=== PATIENT | female | born 1955 | race Hispanic/Latino ===

== ENCOUNTER 2018-03-30 16:33 | Emergency (ER) | payer OTHER ==
[~2018-03-30] VITALS: Ht 157.5 cm; Wt 81.2 kg
--- OUTSIDE RECORDS SUMMARY | 2018-03-30 16:36 | XMS REPORT ---
[facility] Address Unknown Phone Unavailable Care Team Providers Care Household Manager Name Role Phone Unavailable Unavailable Problems This patient has no known problems. Allergies, Adverse Reactions, Alerts This patient has no known allergies or adverse reactions. Medications This patient has no known medications. Encounters Start Date/Time End Date/Time Encounter Type Admission Type Attending [facility] Care Department Encounter ID 2017-05-17 00:00:00 2017-05-17 00:00:00 Outpatient [facility] [id number] 2017-05-08 00:00:00 2017-05-08 00:00:00 Outpatient [facility] [id number] 2017-04-02 00:00:00 2017-04-02 00:00:00 Outpatient [facility] [id number] 2017-04-02 00:00:00 2017-04-02 00:00:00 Outpatient [facility] [id number] 2017-03-20 00:00:00 2017-03-20 00:00:00 Outpatient [facility] [id number] 2017-03-20 00:00:00 2017-03-20 00:00:00 Outpatient [facility] [id number] 2017-03-20 00:00:00 2017-03-20 00:00:00 Outpatient [facility] [id number] 2017-02-28 00:00:00 2017-02-28 00:00:00 Outpatient [facility] [id number] 2017-02-27 00:00:00 2017-02-27 00:00:00 Outpatient [facility] [id number] 2017-02-20 16:19:41 2017-02-20 16:19:41 Outpatient [facility] [id number] 2017-02-15 12:17:21 2017-02-15 12:17:21 Outpatient [facility] [id number] 2017-02-05 11:10:54 2017-02-05 11:10:54 Outpatient [facility] [id number] 2017-01-30 00:00:00 2017-01-30 00:00:00 Outpatient [facility] [id number] 2017-01-11 14:07:13 2017-01-11 14:07:13 Outpatient [facility] [id number] 2017-01-07 12:18:35 2017-01-07 12:18:35 Outpatient [facility] [id number] 2016-12-24 10:29:00 2016-12-24 10:29:00 Outpatient [facility] [id number] 2016-12-21 00:00:00 2016-12-21 00:00:00 Outpatient [facility] [id number] 2016-12-19 15:36:32 2016-12-19 15:36:32 Outpatient [facility] [id number] 2016-12-15 13:06:27 2016-12-15 13:06:27 Emergency [facility] [id number] 2016-12-06 10:07:00 2016-12-06 10:07:00 Outpatient [facility] [id number] 2016-12-06 00:00:00 2016-12-06 00:00:00 Outpatient [facility] [id number] 2016-12-03 10:19:41 2016-12-03 10:19:41 Outpatient [facility] [id number] 2016-12-03 00:00:00 2016-12-03 00:00:00 Outpatient [facility] [id number] 2016-11-20 00:00:00 2016-11-20 00:00:00 Outpatient [facility] [id number] 2016-11-14 14:14:08 2016-11-14 14:14:08 Outpatient [facility] [id number] 2016-11-14 13:39:40 2016-11-14 13:39:40 Outpatient [facility] [id number] 2016-11-12 14:15:31 2016-11-12 14:15:31 Outpatient [facility] [id number] 2016-10-26 09:34:26 2016-10-26 09:34:26 Outpatient [facility] [id number] 2016-10-23 10:38:03 2016-10-23 10:38:03 Outpatient [facility] [id number] 2016-10-17 15:24:09 2016-10-17 15:24:09 Outpatient [facility] [id number] 2016-10-11 12:15:00 2016-10-11 12:15:00 Outpatient [facility] [id number] 2016-10-11 10:24:18 2016-10-11 10:24:18 Outpatient [facility] [id number] 2016-10-03 00:00:00 2016-10-03 00:00:00 Outpatient [facility] [id number] 2016-10-01 12:38:29 2016-10-01 12:38:29 Outpatient [facility] [id number] 2016-10-01 00:00:00 2016-10-01 00:00:00 Outpatient [facility] [id number] 2016-09-19 14:40:33 2016-09-19 14:40:33 Outpatient [facility] [id number] 2016-09-19 14:27:42 2016-09-19 14:27:42 Outpatient [facility] [id number] 2016-09-13 00:00:00 2016-09-13 00:00:00 Outpatient [facility] [id number] 2016-09-11 07:19:34 2016-09-11 07:19:34 Outpatient [facility] [id number] 2016-09-10 14:22:42 2016-09-10 14:22:42 Outpatient [facility] [id number] 2016-09-06 10:00:48 2016-09-06 10:00:48 Outpatient [facility] [id number] 2016-09-06 00:00:00 2016-09-06 00:00:00 Outpatient [facility] [id number] 2016-09-05 15:44:22 2016-09-05 15:44:22 Outpatient [facility] [id number] 2016-09-05 00:00:00 2016-09-05 00:00:00 Outpatient [facility] [id number] 2016-09-03 10:14:31 2016-09-03 10:14:31 Outpatient [facility] [id number] 2016-08-31 16:05:06 2016-08-31 16:05:06 Outpatient [facility] [id number] 2016-08-30 00:00:00 2016-08-30 00:00:00 Outpatient [facility] [id number] 2016-08-29 09:40:09 2016-08-29 09:40:09 Outpatient [facility] [id number] 2016-08-29 00:00:00 2016-08-29 00:00:00 Outpatient [facility] [id number] 2016-08-29 00:00:00 2016-08-29 00:00:00 Outpatient [facility] [id number] 2016-08-27 00:00:00 2016-08-27 00:00:00 Outpatient [facility] [id number] 2016-08-22 17:15:23 2016-08-22 17:15:23 Outpatient [facility] [id number] 2016-08-22 13:39:23 2016-08-22 13:39:23 Outpatient [facility] [id number] 2016-08-15 00:00:00 2016-08-15 00:00:00 Outpatient [facility] [id number] 2016-08-10 09:50:11 2016-08-10 09:50:11 Outpatient [facility] [id number] 2016-08-08 09:21:41 2016-08-08 09:21:41 Outpatient [facility] [id number] 2016-08-08 00:00:00 2016-08-08 00:00:00 Outpatient [facility] [id number] 2016-07-31 11:13:03 2016-07-31 11:13:03 Outpatient [facility] [id number] 2016-07-27 10:20:18 2016-07-27 10:20:18 Outpatient [facility] [id number] 2016-07-27 10:20:12 2016-07-27 10:20:12 Outpatient [facility] [id number] 2016-07-18 13:26:27 2016-07-18 13:26:27 Outpatient [facility] [id number] 2016-06-29 15:02:16 2016-06-29 15:02:16 Outpatient [facility] [id number] 2016-06-29 14:39:48 2016-06-29 14:39:48 Outpatient [facility] [id number]
[2018-03-30 17:22] LABS: BASOPHILS % 0.7 % (0.0-1.0); EOSINOPHILS # (AUTO) 0.1 (0.0-0.4); EOSINOPHILS % 1.9 % (0.0-6.0); HEMATOCRIT 31.6 % (34.2-44.1); HEMOGLOBIN 10.7 g/dL (12.0-16.0); LYMPHOCYTES # (AUTO) 1.5 (1.0-3.2); LYMPHOCYTES % 36.1 % (18.0-39.1); MEAN CORPUSCULAR HEMOGLOBIN 28.5 pg (28-32); MEAN CORPUSCULAR HGB CONC 33.9 g/dL (31-35); MONOCYTES # (AUTO) 0.5 (0.2-0.8); MONOCYTES % 12.3 % (4.4-11.3); NEUTROPHILS # (AUTO) 2.1 (2.1-6.9); NEUTROPHILS % 48.8 % (38.7-80.0); PLATELET COUNT 333 x10e3/uL (140-360); RED BLOOD COUNT 3.76 x10e6/uL (3.6-5.1); RED CELL DISTRIBUTION WIDTH 13.2 % (11.7-14.4)
[2018-03-30 17:39] LABS: ALBUMIN 3.1 g/dL (3.5-5.0); ALBUMIN/GLOBULIN RATIO 0.8 (0.8-2.0); ANION GAP 13.4 mmol/L (8-16); CALCIUM 8.9 mg/dL (8.4-10.2); CREATININE, SERUM 1.21 mg/dL (0.57-1.11); POTASSIUM 4.4 mmol/L (3.5-5.1)
[2018-03-30 18:59] LABS: CLARITY,URINE HAZY (CLEAR); COLOR,URINE YELLOW (YELLOW); LEUKOCYTE ESTERASE ,URINE NEGATIVE (NEGATIVE); NITRITE,URINE NEGATIVE (NEGATIVE); PROTEIN,URINE DIPSTICK NEGATIVE (NEGATIVE)
[2018-03-30 19:00] LABS: BILIRUBIN,URINE NEGATIVE (NEGATIVE); KETONES,URINE NEGATIVE (NEGATIVE); URINE UROBILINOGEN 0.2 mg/dL (0.2 - 1)
[2018-03-30 19:03] LABS: BACTERIA,URINE FEW /HPF; EPITHELIAL CELLS,URINE MODERATE /LPF; WBC,URINE (MAN) 0-5 /HPF (0-5)
[2018-03-30] MEDS ORDERED: SODIUM CHLORIDE 0.9% 500ML 500 ML ONE (19:49)
[2018-03-30] MEDS ORDERED: SODIUM CHLORIDE 0.9% 500ML 500 ML IV ONE (20:00)
[2018-03-30] MEDS ORDERED: SODIUM CHLORIDE 0.9% 50ML 50 ML ONE (20:05)
[2018-03-30] MEDS ORDERED: IOPAMIDOL 370 MG/ML 200 ML INFUS..BTL INJ ONE (20:05)
--- NOTE | 2018-03-30 21:26 | Diagnostic Imaging Report ---
EXAM: CT Abdomen and Pelvis WITH contrast INDICATION: Diffuse abdominal pain, lower back pain. COMPARISON: None. TECHNIQUE: Abdomen and pelvis were scanned utilizing a multidetector helical scanner from the lung base to the pubic symphysis after administration of IV contrast. Coronal and sagittal reformations were obtained. Routine protocol was performed. Scan was performed when during portal venous phase. IV CONTRAST: 100 mL of Isovue 370 ORAL CONTRAST: Water COMPLICATIONS: None RADIATION DOSE: Total DLP: 692.1 mGy*cm Estimated effective dose: (DLP x 0.015 x size factor) mSv Dose modulation, iterative reconstruction, and/or weight based adjustment of the mA/kV was utilized to reduce the radiation dose to as low as reasonably achievable. FINDINGS: LINES and TUBES: None. LOWER THORAX: Small bilateral pleural effusions. HEPATOBILIARY: Numerous ill-defined hypoattenuating liver masses, most discrete lesion appears targetoid measuring 1.7 cm at the dome (series 2 image 8). No biliary ductal dilation. GALLBLADDER: No radio-opaque stones or sludge. No wall thickening. SPLEEN: No splenomegaly. PANCREAS: No focal masses or ductal dilatation. ADRENALS: No adrenal nodules KIDNEYS/URETERS: Kidneys enhance symmetrically. No hydronephrosis. No cystic or solid mass lesions. No stones. GI TRACT: Moderate hiatal hernia. No abnormal distention, wall thickening, or evidence of bowel obstruction. Appendectomy. PELVIC ORGANS/BLADDER: Hysterectomy. Hyperattenuating 1.5 cm lesion in the left vaginal cuff (series 2 image 71). LYMPH NODES: No lymphadenopathy. VESSELS: There is mild atherosclerotic disease in the aorta and major arterial branches. PERITONEUM / RETROPERITONEUM: Moderate to large volume ascites. Omental caking. BONES: Sclerotic 2.5 cm lesion in the superior aspect of the L3 vertebral body. Lytic approximately 1.6 x 4.7 cm lesion in the lateral right iliac bone and punctate sclerotic lesion medially. SOFT TISSUES: Unremarkable. IMPRESSION: Metastatic disease (liver, bone, omentum, likely malignant ascites), possibly from breast primary given patient's history. Other considerations include gynecologic or gastrointestinal primary given omental caking. Numerous ill-defined hypoattenuating liver masses, most discrete lesion measures up to 1.7 cm. Omental caking. Moderate to large volume ascites. Osseous metastases, right iliac and L3 vertebral body. Nonspecific hyperattenuating 1.5 cm lesion in the left aspect of the vaginal cuff. Consider correlation with vaginal exam. Small nonspecific bilateral pleural effusions. Signed by: DR. Patrick Miranda MD on 03/30/2018 9:22 PM
[2018-03-30] MEDS ORDERED: TYLENOL WITH C1 EACH PO (21:54)
[2018-03-30 22:10] VITALS: BP 127/78
== END 2018-03-30 22:15 | disposition home or self-care (01) ==
LOC: ER 16:33
DX: R10.9 Unspecified abdominal pain (principal); M54.5 Low back pain; C41.9 Malignant neoplasm of bone and articular cartilage, unspecified; C22.9 Malignant neoplasm of liver, not specified as primary or secondary; Z92.21 Personal history of antineoplastic chemotherapy
CPT/HCPCS: 36415; 74177; 80053; 81001; 82150; 83690; 85025; 99284; J7040; Q9967

== ENCOUNTER → 2018-04-02 | Outpatient (CLI) | payer OTHER ==
[~2018-04-02] MED LIST: TYLENOL WITH C1 EACH PO
[2018-04-02 15:08] LABS: INR 0.97; PROTHROMBIN TIME 13.8 seconds (11.9-14.5)
[2018-04-02 15:11] LABS: CREATININE, SERUM 1.08 mg/dL (0.57-1.11)
--- NOTE | 2018-04-02 16:48 | Diagnostic Imaging Report ---
Exam: Ultrasound guided diagnostic paracentesis History: History of breast cancer. Patient now has ascites and possible carcinomatosis of the peritoneum. Comparison: CT scan of the abdomen and pelvis dated 03/30/2018 Findings: Preliminary ultrasound in all 4 quadrants shows a small volume amount of fluid. Following informed consent and utilizing full sterile barrier preparation, local anesthesia with 1% Xylocaine was obtained and a 5 [place] Centeze catheter was placed into the fluid collection in the left upper quadrant. A total of 3,050 cc of fluid was withdrawn and sent to the laboratory for predetermined analysis. Patient tolerated the procedure well. Impression: Successful ultrasound-guided paracentesis. Signed by: Dr. Obi Reza DO on 04/02/2018 4:44 PM
[2018-04-02 17:12] LABS: RBC,BODY FLUID 741 cells/uL; WBC,BODY FLUID 49 cells/uL
[2018-04-02 17:14] LABS: BODY FLUID APPEARANCE CLOUDY; BODY FLUID COLOR STRAW; BODY FLUID TYPE PERITONEAL
[2018-04-02 18:11] LABS: LYMPHOCYTES,BODY FLUID 50 %; NEUTROPHILS,BODY FLUID 16 %
[2018-04-02 18:12] LABS: OTHER CELLS,BODY FLUID 34 %
== END ==
LOC: US 13:20
PROVIDERS: ATTEND Internal Medicine Gastroenterology
DX: R18.8 Other ascites (principal)
CPT/HCPCS: 36415; 49083; 82565; 84520; 85049; 85610; 85730; 87070; 87205; 88112; 88305; 89051

== ENCOUNTER → 2018-04-03 | Day surgery (SDC) | payer OTHER ==
--- NOTE | 2018-04-02 15:17 | Diagnostic Imaging Report ---
EXAMINATION: PA and lateral views of the chest. COMPARISON: None CLINICAL HISTORY: Preoperative evaluation, breast biopsy DISCUSSION: Lines/tubes: None. Lungs: The lungs are well inflated and clear. No pneumonia or pulmonary edema. Pleura: No pleural effusion or pneumothorax. Heart and mediastinum: The cardiomediastinal silhouette is normal. Bones and soft tissues: No acute bony abnormalities. IMPRESSION: No acute cardiopulmonary abnormalities. Signed by: Dr. Ronal Bourgeois M.D. on 04/02/2018 3:13 PM
[~2018-04-03] MED LIST changes: +BUPIVACAINE 0.25%/EPI 30ML SDV INJ ONE; +EPHEDRINE SULFATE INJ 50 MG/10 ML SYR ONE; +FENTANYL CITRATE/PF 100MCG/2 ML INJ ONE; +LIDOCAINE HCL 2% LOCAL INJ 5 ML SDV VIAL INJ ONE; +MIDAZOLAM HCL 2 MG/2 ML VIAL ONE; +ONDANSETRON HCL INJ 2MG/ML 2ML 2 MG/ML VIAL ONE; +PROPOFOL IV EMULSION 10 MG/ML 20 ML VIAL ONE; +SEVOFLURANE INHAL SOLN 250 ML PEN BTL ONE
[2018-04-03 13:55] VITALS: BP 119/75
--- NOTE | 2018-04-03 14:19 | Operative Report ---
DATE OF PROCEDURE: April 03, 2018 PREOPERATIVE DIAGNOSIS: Left breast mass, probable cancer. POSTOPERATIVE DIAGNOSIS: Carcinoma of the left breast. OPERATION PERFORMED: Left partial mastectomy. ANESTHESIA: General. COMPLICATIONS: None. ESTIMATED BLOOD LOSS: Minimal. DESCRIPTION OF PROCEDURE: With the patient lying in bed in the supine position, under good general anesthesia, the left breast was prepped with Betadine solution and draped in the usual manner. The area overlying the mass was then infiltrated with 1/4 percent Marcaine solution. A small incision was made, and a Shantanu-Cut needle was introduced and several passes were attempted into the large mass that was present in the upper outer quadrant of the left breast. However, the mass was so hard that the needle could not penetrate it. Therefore, we abandoned doing the Shantanu-Cut needle biopsy and proceeded with an open biopsy. An incision was made in the upper outer quadrant of the left breast and carried down through the subcutaneous tissue. Immediately, a hard mass was encountered. The mass was so hard that it could not actually be cut with the scissors and had to literally be cut with the knife blade as it was extremely hard. Clearly, this is a malignant lesion. A good specimen was obtained and sent for frozen section, which came back as consistent with malignancy, and they had enough tissue for all of the subsequent studies that need to be done. The whole area was then thoroughly irrigated. Perfect hemostasis was ascertained. The breast tissue was then reapproximated with interrupted sutures of 2-0 chromic, and the skin was closed with interrupted vertical mattress sutures of 3-0 nylon. A dressing was applied. The sponge, lap and needle count was correct. The patient tolerated the procedure well and returned to the recovery room in stable condition. Job#: [id number]
== END | disposition home or self-care (01) ==
LOC: OR 07:03
PROVIDERS: ATTEND Surgery
DX: C50.412 Malignant neoplasm of upper-outer quadrant of left female breast (principal); Z17.0 Estrogen receptor positive status [ER+]; Z01.810 Encounter for preprocedural cardiovascular examination; Z01.818 Encounter for other preprocedural examination
CPT/HCPCS: 19101; 71046; 88305; 88329; 93005; J2001; J2250; J2405; J2704

== ENCOUNTER 2018-04-11 10:54 | Observation (INO) | payer SELFPAY ==
[~2018-04-11] VITALS: Ht 157.5 cm; Wt 87.1 kg
[~2018-04-11 10:54] MED LIST changes: -BUPIVACAINE 0.25%/EPI 30ML SDV INJ ONE; -EPHEDRINE SULFATE INJ 50 MG/10 ML SYR ONE; -FENTANYL CITRATE/PF 100MCG/2 ML INJ ONE; -LIDOCAINE HCL 2% LOCAL INJ 5 ML SDV VIAL INJ ONE; -MIDAZOLAM HCL 2 MG/2 ML VIAL ONE; -ONDANSETRON HCL INJ 2MG/ML 2ML 2 MG/ML VIAL ONE; -PROPOFOL IV EMULSION 10 MG/ML 20 ML VIAL ONE; -SEVOFLURANE INHAL SOLN 250 ML PEN BTL ONE
[2018-04-11 11:44] LABS: BASOPHILS % 0.5 % (0.0-1.0); EOSINOPHILS % 0.5 % (0.0-6.0); HEMATOCRIT 33.7 % (34.2-44.1); HEMOGLOBIN 10.5 g/dL (12.0-16.0); LYMPHOCYTES # (AUTO) 1.1 (1.0-3.2); LYMPHOCYTES % 19.5 % (18.0-39.1); MEAN CORPUSCULAR HEMOGLOBIN 26.4 pg (28-32); MEAN CORPUSCULAR HGB CONC 31.2 g/dL (31-35); MEAN CORPUSCULAR VOLUME 84.7 fL (81-99); MONOCYTES # (AUTO) 0.6 (0.2-0.8); MONOCYTES % 11.2 % (4.4-11.3); NEUTROPHILS # (AUTO) 3.8 (2.1-6.9); NEUTROPHILS % 68.1 % (38.7-80.0); PLATELET COUNT 470 x10e3/uL (140-360); RED BLOOD COUNT 3.98 x10e6/uL (3.6-5.1); RED CELL DISTRIBUTION WIDTH 13.7 % (11.7-14.4)
[2018-04-11 11:58] LABS: ALBUMIN 2.6 g/dL (3.5-5.0); ALBUMIN/GLOBULIN RATIO 0.5 (0.8-2.0); ANION GAP 13.8 mmol/L (8-16); CALCIUM 9.2 mg/dL (8.4-10.2); CREATININE, SERUM 1.05 mg/dL (0.57-1.11); POTASSIUM 4.8 mmol/L (3.5-5.1)
--- NOTE | 2018-04-11 12:32 | Diagnostic Imaging Report ---
EXAMINATION: CHEST 2 VIEWS INDICATION: Left sided abdominal pain. COMPARISON: Chest radiograph 04/02/2018. FINDINGS: TUBES and LINES: None. LUNGS: There is consolidative opacity in the left lower lung. Minimal patchy opacity at the right lung base, likely atelectasis. No evidence of pulmonary edema. PLEURA: Possible trace left pleural effusion. No evidence of pneumothorax. HEART AND MEDIASTINUM: The cardiomediastinal silhouette is unremarkable. BONES AND SOFT TISSUES: No acute osseous lesion. Soft tissues are unremarkable. UPPER ABDOMEN: No free air under the diaphragm. IMPRESSION: Consolidative opacity in the left lower lung, which could reflect pneumonia in the appropriate clinical setting. Follow-up chest radiograph is suggested in 6-8 weeks to assess for resolution. Possible trace left pleural effusion. Minimal patchy right basilar opacity, likely atelectasis. Signed by: Dr. Tatiana Molina MD on 04/11/2018 12:26 PM
--- NOTE | 2018-04-11 12:34 | Diagnostic Imaging Report ---
Exam: KUB-3 views. Clinical History: Left-sided abdominal pain. Comparison: CT abdomen/pelvis 03/30/2018. Findings: Frontal view of the abdomen demonstrates a nonobstructive bowel gas pattern with moderate retained stool. No evidence of free intraperitoneal air. No evidence of urinary calcification. Known osseous metastatic lesions per CT on 03/30/2018 are not well seen by radiograph. Impression: No radiograph evidence of bowel obstruction or free intraperitoneal air. Moderate amount of stool in the colon. Please refer to the CT abdomen/pelvis from 03/30/2018 for details of metastatic disease. Signed by: Dr. Tatiana Molina MD on 04/11/2018 12:31 PM
[2018-04-11 12:38] LABS: INR 0.95; PROTHROMBIN TIME 13.5 seconds (11.9-14.5)
[2018-04-11 12:39] LABS: PARTIAL THROMBOPLASTIN TIME 48.3 seconds (23.8-35.5)
[2018-04-11] MEDS ORDERED: ONDANSETRON HCL INJ 2MG/ML 2ML 2 MG/ML VIAL IV PRN (13:45)
[2018-04-11] MEDS ORDERED: SODIUM CHLORIDE FLUSH 10 ML SYR INJ PRN (13:45)
[2018-04-11 14:28] LABS: CREATINE KINASE MB 0.8 ng/mL (0-5.0)
--- NOTE | 2018-04-11 14:30 | Diagnostic Imaging Report ---
EXAM: Ultrasound abdomen limited INDICATION: Ascites. Prior paracentesis COMPARISON: Radiographs April 11, 2018. TECHNIQUE: Transverse and longitudinal images were obtained of the abdomen in all 4 quadrants with grayscale imaging. FINDINGS: There is a moderate amount of abdominal ascites. The study was not tailored to evaluate the remainder of the abdominal organs. IMPRESSION: Moderate amount of abdominal ascites. Signed by: Dr. Mello Patton M.D. on 04/11/2018 2:26 PM
[2018-04-11] MEDS ORDERED: ACETAMINOPHEN/CODEINE 300MG - 30MG TAB PO ONE (15:30)
[2018-04-11 15:43] LABS: CLARITY,URINE SL CLOUDY (CLEAR); COLOR,URINE YELLOW (YELLOW); KETONES,URINE NEGATIVE (NEGATIVE); LEUKOCYTE ESTERASE ,URINE NEGATIVE (NEGATIVE); NITRITE,URINE NEGATIVE (NEGATIVE); PROTEIN,URINE DIPSTICK TRACE (NEGATIVE)
[2018-04-11 15:44] LABS: BILIRUBIN,URINE NEGATIVE (NEGATIVE); URINE UROBILINOGEN 0.2 mg/dL (0.2 - 1)
[2018-04-11 15:53] LABS: BACTERIA,URINE MODERATE /HPF; EPITHELIAL CELLS,URINE MANY /LPF; MUCUS,URINE MANY (RARE); RBC,URINE 0-5 /HPF (0-5)
--- NOTE | 2018-04-11 16:25 | Diagnostic Imaging Report ---
Procedure: Ultrasound-guided therapeutic paracentesis compressor operator portable: Tatiana Molina MD Pre-operative diagnosis: Ascites Post-operative diagnosis: Ascites Conscious Sedation: None The patient's heart rate and pulse oximetry were continuously monitored by the interventional radiology nurse. Additional Medications: 1% subcutaneous lidocaine 15 cc Estimated blood loss: None Blood products administered: None Specimens: None Implants: None Condition at completion: Stable DISCUSSION: Informed consent was obtained and documented in the medical record. The right mid abdomen was prepped and draped in standard sterile fashion. Preliminary ultrasound demonstrated moderate volume ascites. 1% lidocaine was infiltrated into the skin and subcutaneous tissues for local anesthesia. Then under continuous sonographic guidance, a 5 Fr catheter was advanced into the peritoneal space with subsequent evacuation of 2,300 cc serous fluid by vacuum bottle. The catheter was then removed and a sterile dressing was applied. Postprocedure sonographic imaging demonstrated near resolution of ascites. The patient tolerated the procedure well without immediate complication. IMPRESSION: Ultrasound-guided therapeutic paracentesis with removal of 2,300 cc of serous ascites. Signed by: Dr. Tatiana Molina MD on 04/11/2018 4:22 PM
--- NOTE | 2018-04-11 18:33 | NUR ---
I spoke with Dr Burnette (covering for Dr Guy)
--- NOTE | 2018-04-11 18:45 | NUR ---
PATIENT ARRIVED TO ROOM 295 AT THIS TIME. PATIENT IS IN STABLE CONDITION. ORIENTED TO ROOM AND POLICIES. CALL LIGHT WITHIN REACH. BED IN THE LOWEST POSITION.
--- NOTE | 2018-04-11 18:57 | NUR ---
REPORT GIVEN TO ONCOMING NURSE. PATIENT IS RESTING IN BED. NO ACUTE DISTRESS NOTED. CALL LIGHT WITHIN REACH. BED IN THE LOWEST POSITION.
--- NOTE | 2018-04-11 19:39 | NUR ---
PT IS RESTING IN BED WITH FAMILY AT BEDSIDE. NO RESPIRATORY DISTRESS NOTED. BED IN THE LOWEST POSITION, LOCKED, BED ALARM ON, AND CALL LIGHT WITHIN REACH. WILL CONTINUE TO MONITOR.
[2018-04-11 20:09] LABS: CREATINE KINASE MB 0.9 ng/mL (0-5.0)
[2018-04-11 20:34] VITALS: BP 122/84
--- NOTE | 2018-04-11 20:59 | NUR ---
PER DR LEDEZMA TYLENOL #3 300MG Q4H PRN CAN BE CONTINUE FROM HOME MEDICATION. WILL CONTINUE TO MONITOR.
[2018-04-11] MEDS: ACETAMINOPHEN/CODEINE 300MG - 30MG TAB PO PRN (21:34)
[2018-04-11 23:10] VITALS: BP 122/84
[2018-04-11 23:14] VITALS: BP 122/84
[2018-04-12] VITALS (9 sets, daily range): BP systolic 107–131; BP diastolic 64–84
--- NOTE | 2018-04-12 00:48 | NUR ---
SPOKE TO DR LEDEZMA IN REGARD TO PAIN MEDICATION. PT COMPLAIN OF HEADACHE 12/11. PER DR LEDEZMA TYLENOL 650MG Q4H PRN. WILL CONTINUE TO MONITOR.
[2018-04-12] MEDS: ACETAMINOPHEN 325 MG TAB PO PRN ×2 (01:07→06:07)
[2018-04-12] MEDS: ACETAMINOPHEN/CODEINE 300MG - 30MG TAB PO PRN ×4 (03:08→23:06)
--- NOTE | 2018-04-12 06:04 | Diagnostic Imaging Report ---
EXAM: XR CHEST 1 VIEW DATE: 04/12/2018 7:00 AM INDICATION: Shortness of breath COMPARISON: 04/11/2018, no report available FINDINGS: Lines and Tubes: None Heart and Mediastinum: No acute cardiomediastinal findings. Lungs and Pleura: Stable left basilar opacity suggesting small effusion with superimposed atelectasis and/or pneumonia, stable. Bones and Soft Tissues: No acute findings. IMPRESSION: 1. No significant change. Signed by: Dr. Chilo Martínez MD on 04/12/2018 6:00 AM
[2018-04-12 06:17] LABS: BASOPHILS % 0.9 % (0.0-1.0); EOSINOPHILS % 0.9 % (0.0-6.0); HEMATOCRIT 30.6 % (34.2-44.1); HEMOGLOBIN 9.6 g/dL (12.0-16.0); LYMPHOCYTES # (AUTO) 1.2 (1.0-3.2); LYMPHOCYTES % 26.5 % (18.0-39.1); MEAN CORPUSCULAR HEMOGLOBIN 26.7 pg (28-32); MEAN CORPUSCULAR HGB CONC 31.4 g/dL (31-35); MEAN CORPUSCULAR VOLUME 85.2 fL (81-99); MONOCYTES # (AUTO) 0.7 (0.2-0.8); MONOCYTES % 15.7 % (4.4-11.3); NEUTROPHILS # (AUTO) 2.6 (2.1-6.9); NEUTROPHILS % 55.8 % (38.7-80.0); PLATELET COUNT 468 x10e3/uL (140-360); RED BLOOD COUNT 3.59 x10e6/uL (3.6-5.1); RED CELL DISTRIBUTION WIDTH 13.5 % (11.7-14.4)
[2018-04-12 06:35] LABS: ANION GAP 11.3 mmol/L (8-16); CARBON DIOXIDE 25 mmol/L (22-29); CHLORIDE 107 mmol/L (98-107); CREATINE KINASE 79 IU/L (29-168); CREATININE, SERUM 0.86 mg/dL (0.57-1.11); EST GLOMERULAR FILTRATION RATE > 60 ML/MIN (60-); GLUCOSE 96 mg/dL (74-118); PHOSPHORUS 3.7 MG/DL (2.3-4.7); POTASSIUM 4.3 mmol/L (3.5-5.1); SODIUM 139 mmol/L (136-145)
[2018-04-12 07:06] LABS: BLOOD UREA NITROGEN 12 mg/dL (7-26); BUN/CREATININE RATIO 14 (6-25)
--- NOTE | 2018-04-12 07:20 | NUR ---
PATIENT IN BED RESTING WITH NO RESPIRATORY DISTRESS. C/O PAIN AND PAIN MEDICATION GIVEN ORDERED. HAD PARACENTESIS YESTERDAY, DRESSING INTACT TO RIGHT ABDOMEN SITE. STITCHES INTACT TO LEFT BREAST. BED IN LOWER POSITION, CALL LIGHT AT REACH. WILL CONTINUE TO MONITOR.
--- NOTE | 2018-04-12 11:15 | NUR ---
WALKING ROUND MADE, PATIENT IN BED RESTING WITH EYES CLOSED, NO RESPIRATORY DISTRESS OBSERVED. BED IN LOWER POSITION, CALL LIGHT AT REACH. FAMILY AT BED SIDE.
--- NOTE | 2018-04-12 12:24 | NUR ---
Nutrition Screen Note RD Recommendation for Physician: Continue diet as ordered Plan of Care: RD following, monitoring for adequacy and tolerance Nutrition reason for involvement: Nutrition Risk Trigger - MST Primary Diagnose(s): SOB metastatic Cancer Ht:62 in Wt:192lbs BMI:35.1 kg/m2 IBW:110lbs RD Assessment:(04/12/2018) Initial encounter with patient. Patient prefers not to eat meat. Family had brought a large salad with cheese and mixed greens. Pt reporting a good PO intake. OK to honor preferences. Pt denies Nausea, vomiting, or diarrhea, nor has any difficulty chewing or swallowing. Pt denies any wt loss Lab results reviewed; MAR reviewed Current Diet: Cardiac diet Malnutrition Evaluation (04/12/2018) The patient does not meet criteria for a specified degree of malnutrition at this time. Will re-evaluate at follow-up as appropriate. Diet Education Needs Assessment: Diet education not indicated. Diet Adequacy: Meeting calorie needs, Meeting protein needs, Meeting fluid needs Tolerance: Tolerating PO Nutrition Care Level: Wes Faulkner RD, LD, CNSC
--- NOTE | 2018-04-12 16:07 | NUR ---
PATIENT ASSISTED TO THE RESTROOM AND BACK TO BED. CALL LIGHT AT REACH.
--- NOTE | 2018-04-12 16:08 | History and Physical ---
HISTORY OF PRESENT ILLNESS: The patient is a 62-year-old female who has past medical history positive for breast cancer with metastatic lesions to the lungs and the bone. Apparently, he has been in remission for 1 to 5 years, now currently undergoing chemotherapy . Came to the hospital complaining of shortness of breath. She was found to have abdominal distention. She underwent paracentesis with a large volume of ascites removed. REVIEW OF SYSTEMS CARDIOVASCULAR: No chest pain or palpitation. RESPIRATORY: She does have shortness of breath which is resolved now after paracentesis. GASTROINTESTINAL: No nausea, no vomiting, no diarrhea. GENITOURINARY: No frequency, no dysuria. ALLERGIES: SHE IS NOT ALLERGIC TO ANY MEDICATION. SOCIAL HISTORY: She does not smoke. She does not drink. PAST MEDICAL HISTORY: Positive for stage IV breast cancer with metastasis. PHYSICAL EXAMINATION VITAL SIGNS: Blood pressure 107/70, temperature 37.4, heart rate 75 per minute, respiratory rate 18 per minute, oxygen saturation 98%. HEART: Shows regular rhythm. Normal S1 and S2 sounds. LUNGS: Clear bilaterally. ABDOMEN: Soft. No tenderness, distention, or visceromegaly. EXTREMITIES: Show no evidence of cyanosis, edema, or trauma. LABORATORY DATA: On the BMP, sodium 139, potassium 4.3, chloride 107, CO2 of 25, BUN 12, creatinine 0.86, glucose 96. On the CBC, white blood count 4.64, hemoglobin 9.6, hematocrit 30.6, platelet count 468,000. PT 13.5, INR 0.95, PTT 48.3. AST 78, ALT 43, total bilirubin 0.4, alkaline phosphatase 118. FINAL IMPRESSION 1. Ascites, which might be malignant. 2. Shortness of breath. 3. Breast cancer with metastasis. 4. Anemia, most likely chronic anemia. PLAN OF TREATMENT: Patient has received paracentesis. Patient wants to go home. She is going to have a PET scan done as an outpatient. Dr. Guy, oncology, has been consulted on the case. Tentative discharge for tomorrow. Follow up with oncologist. She going to get a PET scan at [facility], which has been rescheduled with oncologist on Saturday. Job#: [id number] KATHLEEN
[2018-04-13 00:18] VITALS: BP 129/74
--- NOTE | 2018-04-13 03:00 | NUR ---
patient rounded and stable.
--- NOTE | 2018-04-13 03:33 | Discharge Summary ---
BRIEF HISTORY/HOSPITAL COURSE: The patient is a 62-year-old -[place] female who came here to the hospital complaining of abdominal distension and shortness of breath. She did have paracenteses done due to large volume ascites she had. Apparently, she had a history of breast cancer with metastatic lesions to the bone and lungs. PHYSICAL EXAM HEART: Regular rhythm. Normal S1 and S2 sounds. LUNGS: Clear bilaterally. ABDOMEN: Soft and nondistended. FINAL IMPRESSION 1. Patient has ascites, most likely malignant. 2. Shortness of breath secondary to ascites. 3. Breast cancer with metastases. 4. Anemia. PLAN OF TREATMENT: Patient is going to be discharged home tomorrow. Follow up with oncologist in sometime next week. She also had an appointment for the PET scan at [facility] scheduled by her oncologist. She was going to be get a prescription for Tylenol No. 3 one tablet every 4 hours as needed for pain. Job#: [id number] LACY
[2018-04-13 04:00] VITALS: BP 112/65
--- NOTE | 2018-04-13 06:44 | NUR ---
patient condition throughout the night was stable. patient endorsed to next shift for continuity of care.
--- NOTE | 2018-04-13 07:18 | NUR ---
PATIENT SITTING UP IN BED TALKING ON THE PHONE, NO RESPIRATORY DISTRESS OBSERVED. BED IN LOWER POSITION, CALL LIGHT AT REACH. FAMILY AT BED SIDE.
[2018-04-13 07:25] VITALS: BP 106/69
[2018-04-13] MEDS: ACETAMINOPHEN/CODEINE 300MG - 30MG TAB PO PRN (08:15)
[2018-04-13 08:34] VITALS: BP 106/69
--- NOTE | 2018-04-13 10:05 | NUR ---
PATIENT DISCHARGED HOME. DISCHARGE INSTRUCTIONS, PRESCRIPTIONS, AND FOLLOW UP GIVEN TO PATIENT AND DAUGHTER, THEY VERBALIZED UNDERSTANDING. IV TO RIGHT AC REMOVED WITH TIP INTACT. ALL PERSONAL ITEMS TAKEN WITH PATIENT. LEFT UNIT PER WHEEL CHAIR TO FRONT LOBBY IN STABLE CONDITION.
== END 2018-04-13 10:18 | disposition home or self-care (01) ==
LOC: ER 10:54 → ERHOLD 15:44 → MED/SURG3 18:43
PROVIDERS: ADMIT Internal Medicine; ATTEND Internal Medicine
DX: C50.912 Malignant neoplasm of unspecified site of left female breast (principal); R18.0 Malignant ascites; R06.00 Dyspnea, unspecified; R14.0 Abdominal distension (gaseous); D64.9 Anemia, unspecified; C78.02 Secondary malignant neoplasm of left lung; C78.01 Secondary malignant neoplasm of right lung; C78.7 Secondary malignant neoplasm of liver and intrahepatic bile duct; C78.6 Secondary malignant neoplasm of retroperitoneum and peritoneum; C79.51 Secondary malignant neoplasm of bone
CPT/HCPCS: 36415 ×2; 49083; 71045; 71046; 74019; 74470; 76705; 80048; 80053; 81001; 82550 ×2; 82553 ×2; 83735; 84100; 84484 ×2; 85025 ×2; 85610; 85730; 93005; 99284; C1729; G0378 ×3

== ENCOUNTER 2018-04-24 11:11 | Emergency (ER) | payer SELFPAY ==
[~2018-04-24] VITALS: Ht 157.5 cm; Wt 87.1 kg
--- NOTE | 2018-04-24 11:38 | NUR ---
ULTRASOUND AT BEDSIDE TO ASSIST DR. HEATH WITH PARACENTESIS
--- NOTE | 2018-04-24 12:43 | NUR ---
CONSENT FORM SIGNED FOR PARACENTESIS GROUN[employer]KEE[employer]TER AT BEDSIDE SPEAKING WITH PATIENT AND HER DAUGHTER
--- NOTE | 2018-04-24 12:51 | NUR ---
GAVE PACKET OF INFORMATION WITH [employer] FOR ASSISTANCE WITH LOW TO NO INCOME TO PATIENT. RESOURCES THAT PATIENT MAY BE ABLE TO FOLLOW UP UPON DISCHARGE. PT EDUCATED ON EACH RESOURCE AND UNDERSTANDING HOW TO FOLLOW UP TO SEE IF QUALIFIED FOR EACH RESOURCE.
[2018-04-24] MEDS ORDERED: HYDROMORPHONE 1MG/1ML INJ IV STA (13:24)
[2018-04-24] MEDS ORDERED: HYDROMORPHONE 2MG/ML 2 MG/ML ML IV NR (13:30)
--- NOTE | 2018-04-24 14:02 | NUR ---
3540 FLUID VIA PARACENTESIS.
[2018-04-24] MEDS ORDERED: ULTRAM50 MG PO (14:30)
[2018-04-24] MEDS ORDERED: HYDROCODONE/APAP 10MG-325MG TAB PO ONE (14:45)
[2018-04-24 18:15] LABS: BODY FLUID APPEARANCE SL.CLOUDY; BODY FLUID COLOR STRAW; BODY FLUID TYPE PERITONEAL
[2018-04-24 18:16] LABS: RBC,BODY FLUID 261 cells/uL; WBC,BODY FLUID 30 cells/uL
[2018-04-24 18:43] LABS: LYMPHOCYTES,BODY FLUID 73 %; MONO/MACROPHG,BODY FLUID 15 %
[2018-04-24 18:44] LABS: OTHER CELLS,BODY FLUID 12 %
== END 2018-04-24 16:37 | disposition home or self-care (01) ==
LOC: ER 11:11
DX: R18.0 Malignant ascites (principal); R10.9 Unspecified abdominal pain; C50.919 Malignant neoplasm of unspecified site of unspecified female breast; I10 Essential (primary) hypertension; M54.9 Dorsalgia, unspecified; G89.29 Other chronic pain
CPT/HCPCS: 36415; 49083; 83615; 87070; 87205; 89051; 99283; C1729; J1170

== ENCOUNTER 2018-04-28 15:54 | Emergency (ER) | payer SELFPAY ==
[~2018-04-28] VITALS: Ht 157.5 cm; Wt 87.1 kg
[~2018-04-28 15:54] MED LIST changes: +ULTRAM50 MG PO
[2018-04-28 18:23] VITALS: BP 105/73
== END 2018-04-28 18:27 | disposition home or self-care (01) ==
LOC: ER 15:54
DX: C50.919 Malignant neoplasm of unspecified site of unspecified female breast (principal); R18.0 Malignant ascites; C79.9 Secondary malignant neoplasm of unspecified site; K44.9 Diaphragmatic hernia without obstruction or gangrene
CPT/HCPCS: 99282